=== PATIENT | female | born 1960 | race African-American/Black ===

== ENCOUNTER 2018-02-09 18:42 | Emergency (ER) | payer OTHER ==
[~2018-02-09] VITALS: Ht 170.2 cm; Wt 121.4 kg
[2018-02-09] MEDS ORDERED: LISI-661 PO (19:12)
[2018-02-09] MEDS ORDERED: KETOROLAC TROMETHAMINE 30 MG/ML VIAL IM ONE (20:00)
[2018-02-09 21:18] VITALS: BP 141/84
== END 2018-02-09 21:20 | disposition home or self-care (01) ==
LOC: EMS 18:43
DX: M25.561 Pain in right knee (principal); M25.562 Pain in left knee; G89.29 Other chronic pain; I10 Essential (primary) hypertension
CPT/HCPCS: 96372; 99283; J1885